=== PATIENT | female | born 1930 | race Caucasian/White ===

== ENCOUNTER → 2017-03-07 | Day surgery (SDC) | payer MEDICARE ==
[2017-03-07] VITALS (11 sets, daily range): BP systolic 127–159; BP diastolic 61–71; PULSE 79–88; RESP 16; O2SAT 95–97
[~2017-03-07] VITALS: Ht 162.6 cm; Wt 67.0 kg
[~2017-03-07] MED LIST: 0.9% Sodium Chloride 1,000 ML IV ONE; 0.9% Sodium Chloride 1,000 ML IV PRN; 0.9% Sodium Chloride 250 ML IV PRN; ACET-2605 PO; ATEN25TA PO; Atropine 1 mg/10 mL (Code) Syringe IVPUSH PRN; CALC-190 PO; CALC-952 PO; CHOL10008 PO; HYDR-4003 PO; Heparin 1,000 Unit/mL 10 mL Inj ONE; Heparin 1,000 Units/500 mL NS Premix IV ONE; Heparin 10,000 Unit/1,000 mL NS Premix IV ONE; LEVO50TA39 PO; LEVO88TA28 PO; MV-M1CAP15 PO; Nitroglycerin 50,000 mcg/250 mL D5W Premix IV ONE; Ondansetron 2 mg/mL 2 mL Inj IVPUSH PRN; UBID30CA8 PO; Verapamil 2.5 mg/mL 2 mL Inj ONE; fentaNYL-PF 50 mCg/mL 2 mL Inj ONE
[2017-03-07 12:26] LABS: BASOPHILS % (AUTO) 0 % (0-3); EOSINOPHILS % (AUTO) 2.8 % (0-5); MONOCYTES % (AUTO) 5.6 % (4-12); Mean Corpuscular Hemoglobin 31.7 pg (27.0-35.0); Mean Corpuscular Volume 93.9 fL (81-100); NEUTROPHILS % (AUTO) 39.6 % (40-74); Platelet Count 103 bil/L (150-400)
--- NOTE | 2017-03-07 18:38 | PCM.CVCATH ---
Cardiac Cath Report Date of Service Mar 07, 2017 Primary Indication Critical aortic stenosis Procedure 1. Selective coronary angiography Vascular Access Right radial artery Diagnostic Catheters 5 [place] 3.5 5 [place] 4 Procedure Details The patient was brought to the cardiac catheterization lab in the fasting state. Patient was laid supine on the cardiac catheterization table and the right forearm was prepped and draped in the usual sterile fashion. One percent lidocaine was infiltrated over the right radial artery. Vascular access was then achieved. Guide wire was used to advance the catheter through the sheath and up into aortic sinuses. After coronary angiography was completed, guide wire was advanced through the catheter ahead of the tip of the catheter and the guide wire along with the catheter were pulled together out of the sheath. There was some difficulty with placing the diagnostic catheters due to tortuous subclavian artery. Contrast: 60 mL Estimation of blood loss: 10 mL Medications/Fluoro Time See procedure log Findings 1. Hemodynamics: The aortic systemic pressure was estimated at 131/88 mmHg. 2. Selective coronary angiography: A. Left main: There artery has no evidence of significant disease. It bifurcates into the left anterior descending and left circumflex arteries. B. Left anterior descending artery: There is no evidence of significant disease. C. Left circumflex artery: There is no evidence of significant disease. D. Right coronary artery: This is a dominant vessel and there is no evidence of significant disease. Summary 1. No evidence of significant disease angiographically. Recommendations The patient will be referred to [facility] to consider TAVR for her critical aortic stenosis. She does have significant peripheral artery disease involving both bilateral SFAs. However her common femorals and iliacs bilaterally have no evidence of inflow stenosis. copies to: Donna Franz MD, Oscar J MD Mar 07, 2017 18:38
--- NOTE | 2017-03-07 19:20 | NUR ---
Pt's Rt radial puncture site CDI with no bleeding/hematoma noted. VSS. Pt given all discharge instructions and follow up appt. Pt had no questions at time of d/c, was discharged ambulatory, accompanied by daughter.
== END | disposition home or self-care (01) ==
LOC: SOUO 00:18
PROVIDERS: ATTEND Internal Medicine Cardiovascular Disease
DX: I35.0 Nonrheumatic aortic (valve) stenosis (principal); I45.10 Unspecified right bundle-branch block; C94.81 Other specified leukemias, in remission; I77.89 Other specified disorders of arteries and arterioles; I73.9 Peripheral vascular disease, unspecified; G47.33 Obstructive sleep apnea (adult) (pediatric); E03.9 Hypothyroidism, unspecified; K21.9 Gastro-esophageal reflux disease without esophagitis; I10 Essential (primary) hypertension; I48.0 Paroxysmal atrial fibrillation
CPT/HCPCS: 36415; 80048; 85025; 93005; 93454; 99152; 99153; C1769; C1894; J1644; J2250; J3010; Q9967